=== PATIENT | female | born 1960 | race Caucasian/White ===

== ENCOUNTER 2016-05-01 10:42 | Inpatient (IN) | payer OTHER ==
[~2016-05-01] VITALS: Ht 157.5 cm; Wt 65.5 kg
[2016-05-01 11:28] LABS: EOSINOPHIL (%) 0.5 % (0-5); EOSINOPHIL COUNT 0.1 K/uL (0-0.3); HEMATOCRIT 47.4 % (36.0-46.0); IMMATURE GRANULOCYTE (%) 0.1 % (0.0-0.7); IMMATURE GRANULOCYTE COUNT 0.1 K/uL; LYMPHOCYTE COUNT 1.7 K/uL (1.0-2.8); MCH 30.2 PG (29.0-34.0); MCHC 34.2 G/DL (30.0-36.0); MCV 88.4 FL (83-99); MEAN PLAT.VOLUME 11.3 uM^3 (9.5-12.4); MONOCYTE (%) 6.8 % (3-12); MONOCYTE COUNT 0.6 K/uL (0-0.8); NEUTROPHIL (%) 74.4 % (45-76); PLATELET COUNT 174 K/uL (156-360); RBC DIS.WIDTH-CV 13.6 % (11.8-14.6); RBC DIS.WIDTH-SD 43.7 % (39-53); RED BLOOD COUNT 5.36 M/uL (3.80-5.20); WHITE BLOOD COUNT 9.4 K/uL (4.1-10.2)
[2016-05-01 11:41] LABS: CHLORIDE 107 mEq/L (99-109); POTASSIUM 3.8 mEq/L (3.7-5.4); SODIUM 141 mEq/L (136-147)
[2016-05-01 11:43] LABS: GLUCOSE 130 mg/dL (70-99)
[2016-05-01 11:44] LABS: ANION GAP 13 MEQ/L (2-14)
[2016-05-01 11:46] LABS: SERUM ETHYL ALCOHOL < 10 mg/dL
[2016-05-01 11:47] LABS: GFR ESTIMATE (CALCULATED) > 59 mL/min/
[2016-05-01 11:48] LABS: UREA NITROGEN (BUN) 12 mg/dL (9-23)
[2016-05-01 13:36] LABS: ADD MIUA? YES; BILIRUBIN NEGATIVE; BLOOD NEGATIVE; COLOR YELLOW ((YELLOW)); GLUCOSE (STRIP) NEGATIVE; KETONES 15; LEUKOCYTES MODERATE; NITRITE POSITIVE; PROTEIN (STRIP) NEGATIVE; SPECIFIC GRAVITY 1.018 (1.000-1.030); UROBILINOGEN 0.2 MG/DL (0.2-1.0)
[2016-05-01 13:45] LABS: AMPHETAMINE NEGATIVE (500 ng/mL); BARBITURATES NEGATIVE (200 ng/mL); BENZODIAZEPINES NEGATIVE (150 ng/mL); COCAINE NEGATIVE (150 ng/mL); INTERNAL CONTROLS VALID? YES; METHADONE NEGATIVE (200 ng/mL); METHAMPHETAMINE NEGATIVE (500 ng/mL); OPIATES (MORPHINE) NEGATIVE (100 ng/mL); OXYCODONE NEGATIVE (100 ng/mL); PHENCYCLIDINE NEGATIVE (25 ng/mL); PROPOXYPHENE NEGATIVE (300 ng/mL); THC CANNABINOIDS NEGATIVE (50 ng/mL); TRICYCLIC ANTIDEPRESSANTS NEGATIVE (300 ng/mL)
[2016-05-01 14:09] LABS: EPITHELIAL CELLS 1+; RED BLOOD CELLS NONE SEEN /HPF (0-5)
[2016-05-01 14:10] LABS: BACTERIA 3+; CASTS NONE SEEN /LPF; CRYSTALS NONE SEEN; MUCUS RARE
[2016-05-01] MEDS ORDERED: CIPRO500 MG PO (14:32)
[2016-05-01] MEDS ORDERED: UNISOM SLEEP AI25 MG PO (16:28)
[2016-05-01 17:43] VITALS: BP 122/71
[2016-05-01 17:48] VITALS: BP 122/70
[2016-05-02 07:51] VITALS: BP 111/55
[2016-05-02 15:11] VITALS: BP 99/55
[2016-05-03 07:40] VITALS: BP 88/54
[2016-05-03 11:14] VITALS: BP 101/61
[2016-05-03 16:11] VITALS: BP 112/68
[2016-05-04 07:12] VITALS: BP 106/58
[2016-05-04 15:45] VITALS: BP 101/61
[2016-05-05 09:12] VITALS: BP 105/58
[2016-05-05] MEDS ORDERED: HALDOL2 MG PO (09:15)
[2016-05-05] MEDS ORDERED: COGENTIN0.5 MG PO (09:15)
[2016-05-05] MEDS ORDERED: ESCITALOPRAM OX10 MG PO (09:15)
== END 2016-05-05 11:04 | disposition home or self-care (01) | DRG 885 ==
LOC: EME 10:42 → 1WEST 14:48 → EDOF 14:48 → 1WEST 17:36
PROVIDERS: Emergency Medicine
DX: F32.3 Major depressive disorder, single episode, severe with psychotic features (principal); N39.0 Urinary tract infection, site not specified
CPT/HCPCS: 80048; 81003; 85025; 90839; 97150 GO; 97166 GO; 99281; 99284; G0480; Q0177